=== PATIENT | female | born 1980 | race Caucasian/White ===

== ENCOUNTER 2023-09-20 16:42 | Outpatient (CLI) | payer OTHER | END 2023-09-20 17:32 | disposition home or self-care (01) | LOC: NST 16:42 | PROVIDERS: ATTEND Obstetrics & Gynecology | DX: Z34.83 Encounter for supervision of other normal pregnancy, third trimester (principal) ==

== ENCOUNTER 2023-09-29 16:01 | Outpatient (CLI) | payer OTHER | END 2023-09-29 16:35 | disposition home or self-care (01) | LOC: NST 16:01 | PROVIDERS: ATTEND Obstetrics & Gynecology Maternal & Fetal Medicine | DX: Z34.83 Encounter for supervision of other normal pregnancy, third trimester (principal) ==